=== PATIENT | female | born 1955 | race African-American/Black ===

== ENCOUNTER → 2018-04-26 | Day surgery (SDC) | payer MEDICARE, MEDICAID ==
[~2018-04-26] MED LIST: LIDOCAINE HCL 1% 20ML VIAL (Pyxis) INJ ONE; SODIUM CHLORIDE 0.9% 10ML VIAL ONE
== END | disposition home or self-care (01) ==
LOC: RADANGIO 10:13
PROVIDERS: ATTEND Neurological Surgery
DX: M51.37 Other intervertebral disc degeneration, lumbosacral region (principal); J45.909 Unspecified asthma, uncomplicated; E78.00 Pure hypercholesterolemia, unspecified; M51.26 Other intervertebral disc displacement, lumbar region; M48.062 Spinal stenosis, lumbar region with neurogenic claudication
CPT/HCPCS: 62287; 87070; 87075; 87205; J3490; 77002; 77003